=== PATIENT | male | born 1980 | race Caucasian/White ===

== ENCOUNTER 2016-07-25 15:19 | Emergency (ER) | payer SELFPAY ==
[~2016-07-25] VITALS: Ht 177.8 cm; Wt 87.5 kg
[2016-07-25 16:08] VITALS: Ht 177.8 cm; Wt 87.5 kg
[2016-07-25] MEDS ORDERED: LORAZEPAM 1 MG TAB PO ONE (16:30)
--- NOTE | 2016-07-25 17:44 | ERD ---
ER Documentation Chief Complaint Date/Time DATE: 07/25/16 TIME: 17:40 Chief Complaint ETOH + UNKNOWN DRUG USE LAST NIGHT. DENIES SI HPI This is a 36-year-old male that indicates he had been drinking alcohol today socially with friends. He stated he became very nervous and anxious and developed palpitations just prior to arrival. He indicated he utilized an illicit drug last night which he believes was cocaine. He denies a headache or changes in vision. He has no chest pain or pressure that radiates to the neck arm back or jaw. He denies any suicidal homicidal thoughts or ideations. He denies any diaphoresis and no fevers no shaking or chills. No shortness of breath at rest or exertion. He denies a productive or nonproductive cough ROS All systems reviewed and are negative except as per history of present illness. Allergies Allergies: Coded Allergies: No Known Drug Allergies (Verified Allergy, 05/10/12) PMhx/Soc Hx Alcohol Use: Yes (SOCIALLY) Hx Substance Use: No Hx Tobacco Use: No Physical Exam Vitals Vital Signs Date Time Temp Pulse Resp B/P Pulse Ox O2 Delivery O2 Flow Rate FiO2 07/25/16 16:08 97.4 116 20 130/89 100 Physical Exam Constitutional:Well-developed. Well-nourished. HEENT:Normocephalic. Atraumatic.Pupils were equal round reactive to light. Moist mucous membranes.No tonsillar exudates. Neck: No nuchal rigidity. No lymphadenopathy. No posterior cervical spine tenderness or step-offs. Respiratory: Not using accessory muscles of respiration.Lungs were clear to auscultation bilaterally. No rhonchi. No rales. No wheezing. Cardiovascular: Regular rate regular rhythm.No murmurs. No rubs were appreciated.S1, S2 normal. Distal pulses are palpable 2+ bilaterally. GI: Abdomen was soft. Nontender. Non Distended. No pulsatile abdominal masses or bruits. No rebound. No guarding. Bowel sounds were present and normal. Muscle skeletal: Full range of motion of both the upper and lower extremities bilaterally.Normal muscle tone.No assymetrical calf tenderness or swelling. Skin: No petechia, no purpura. No lesions on the palms or the soles of the feet. No maculopapular rash. NEURO: Patient was alert, awake, orientated x3.No facial droop. Gait observed and normal with no ataxia.Speech had regular rate and rhythm. No focal neurological deficits. Patient denied any suicidal homicidal thoughts ideations. Patient denied any auditory tactile or visual hallucinations. Results 24 hrs Current Medications Medications (Trade) Dose Ordered Sig/Iona Route PRN Reason Start Time Stop Time Status Last Admin Dose Admin Lorazepam (Ativan) 1 mg ONCE ONCE PO 07/25/16 16:30 07/25/16 16:31 DC Procedures/MDM This patient presented to the emergency department after consuming alcohol and feeling very nervous with palpitations. Patient appeared to be having a mild anxiety reaction however when nursing staff went to establish an IV they indicated the patient eloped without completion of treatment. Therefore no ancillary laboratory work was obtained and the patient did not receive any analgesic medication Departure Diagnosis: Primary Impression: Alcoholic intoxication Complication of substance-induced condition: uncomplicated Qualified Code: F10.120 - Alcoholic intoxication, uncomplicated Additional Impression: Acute anxiety Condition: Serious OLGA CLARKE Jul 25, 2016 17:44
== END 2016-07-25 20:19 | disposition left against medical advice (07) ==
LOC: E/R 15:19
DX: F10.120 Alcohol abuse with intoxication, uncomplicated (principal)
CPT/HCPCS: 99282

== ENCOUNTER 2016-10-23 16:27 | Emergency (ER) | payer SELFPAY ==
[~2016-10-23] VITALS: Ht 182.9 cm; Wt 91.5 kg
[2016-10-23 16:30] VITALS: Ht 182.9 cm; Wt 91.5 kg
[2016-10-23 17:40] VITALS: BP 142/76; PULSE 64
== END 2016-10-23 19:57 | disposition left against medical advice (07) ==
LOC: FTE 16:27
DX: Z53.21 Procedure and treatment not carried out due to patient leaving prior to being seen by health care provider (principal)